=== PATIENT | male | born 1965 | race Caucasian/White ===

== ENCOUNTER 2016-12-30 23:33 | Inpatient (IN) ==
[2016-12-31] MEDS ORDERED: Vancomycin 1,000 MG in D5% in Water 250 ML IVPB ONE ×2 (00:08→03:00)
--- NOTE | 2016-12-31 00:11 | Emergency Department Note ---
Disposition Clinical Impression: Bilateral cellulitis of lower leg Anemia Qualifiers: Anemia type: unspecified type Qualified Code(s): D64.9 - Anemia, unspecified Disposition: Admitted As Inpatient Condition: Good Time of Disposition: 01:43 Skin/Abscess/FB HPI Chief complaint: ED Skin/Abscess/Foreign Body Stated complaint: cellulitus both lower legs Time Seen by Provider: 12/31/16 00:05 Source: patient Mode of arrival: ambulatory Limitations: no limitations Nursing Notes Reviewed: Yes Vital Signs Reviewed: Yes HPI Narrative: 51-year-old white male who has had redness in his legs for about 2-1/2-3 weeks. He has had weeping/drainage from his legs. He was seen here on 12/20/16. They recommended admission for cellulitis. He declined admission at that time, and returns tonight stating his legs are no better on oral antibiotics. No reported fever. He is a diabetic. He has not been monitoring his blood sugars. Pt Subjective Complaint: discoloration (Redness both legs) Onset (ago): week(s) (2-10/08) Tetanus Up to Date: unsure Location: LLE, RLE Severity: moderate Quality: burning Consistency: constant Improves with: none Worsens with: none Context: recent antibiotic Associated symptoms: Reports: denies other symptoms Treatments prior to arrival: antibiotic Home Medications Medication Instructions Recorded Confirmed Buprenorphine HCl/Naloxone HCl 1 each SL QID 10/27/15 12/30/16 [Suboxone 8 mg-2 mg Sl Film] Metformin [Glucophage] 1,000 mg PO BIDWM 10/27/15 12/30/16 Insulin Glargine,Hum.rec.anlog 50 unit SQ DAILY 12/20/16 12/30/16 [Lantus Solostar] Bumetanide 1 mg PO DAILY 12/30/16 12/30/16 Gabapentin [Neurontin] 300 mg PO BID 12/30/16 12/30/16 Potassium Chloride [Klor-Con 10 meq PO DAILY 12/30/16 12/30/16 Sprinkle] Previous Rx's Medication Instructions Recorded Omeprazole [PriLOSEC] 40 mg PO BID #40 cap 10/30/15 Clindamycin [Cleocin] 450 mg PO TID 10 Days 12/21/16 Allergies Allergy/AdvReac Type Severity Reaction Status Date / Time hydrocodone Allergy Hives Verified 10/18/16 03:26 All systems ED: reviewed and negative except as stated. Constitutional: Denies: fever, chills Cardiovascular: Denies: chest pain Respiratory: Denies: cough, dyspnea Gastrointestinal: Denies: abdominal pain, nausea, vomiting Musculoskeletal: Reports: as per HPI Integumentary: Reports: as per HPI Past Medical History - Past Medical History Medical history: Reports: cancer, diabetes, hypertension, TIA, other Surgical history: Reports: bariatric surgery, cholecystectomy, other Psychiatric history: Reports: no psych history - Social History Smoking Status: Never smoker Smokeless Tobacco Status: No Alcohol use: Reports: none Drug use: Reports: none Physical Exam - General Limitations: no limitations General appearance: alert, in no apparent distress, obese (Morbid) - Eye Eye exam: Present: normal appearance, PERRL, EOMI. Absent: scleral icterus, conjunctival injection - ENT ENT exam: normal oropharynx, mucous membranes moist - Neck Neck exam: Present: normal inspection, full ROM, trachea midline. Absent: lymphadenopathy - Chest Chest inspection: Present: normal inspection, symmetric chest wall rise - Respiratory Respiratory exam: Present: normal lung sounds bilaterally. Absent: respiratory distress, wheezes - Cardiovascular Cardiovascular exam: Present: regular rate, normal rhythm, normal heart sounds - Abdominal Exam Abdominal exam: Present: soft, Non-Tender, normal bowel sounds. Absent: organomegaly, mass - Extremities Exam Extremities exam: Present: other (2-3+ edema both lower extremities below the knees including the ankle and feet. There is diffuse erythema of the entire tib -fib area on the left, primarily anterior medial and laterally. There is some weeping ulcerations of clear fluid. The ankle and foot shows minimal erythema. The right lower extremity shows some moderate erythema over the mid and lateral tib-fib. There are some serous draining areas as well. There is one small pustule over the anterior tibia.) - Neurological Exam Neurological exam: Present: alert, oriented X3, normal gait - Psychiatric Psychiatric exam: Present: normal affect, normal mood - Skin Skin exam: Present: erythema (Erythema to both lower legs as noted above. Open superficial wounds draining clear fluid along with the one pustule is noted above.) Course - Reevaluation(s) Reevaluation #1: Discussed with Dr. Reyes. He accepts the patient for admission. The patient is agreeable with the treatment plan. Time: :43 Vital Signs Temperature 99.0 F 12/30/16 23:39 Pulse Rate 109 12/30/16 23:39 Respiratory Rate 19 12/30/16 23:39 Blood Pressure 152/79 12/30/16 23:39 O2 Sat by Pulse Oximetry 97 12/30/16 23:39 Temperature 99.0 F 12/30/16 23:41 Pulse Rate 93 12/31/16 00:57 Respiratory Rate 16 12/31/16 00:57 Blood Pressure 145/83 12/31/16 00:57 O2 Sat by Pulse Oximetry 94 L 12/31/16 00:57 Oxygen Delivery Oxygen Delivery Room Air Skin/Abscess/Foreign Body - MDM Narrative Medical decision making narrative: Differential includes but is not limited to DVT, cellulitis, dermatitis, dependent edema. His physical exam is most consistent with a cellulitis. Wound culture was obtained. Blood cultures were obtained. IV vancomycin was initiated. He is anemic with a hemoglobin of 6.8. On review of his old records his most recent hemoglobins in the last several months up in between 7.[address] Reyes is aware of the anemia. He will evaluate the anemia and initiate the workup in the morning. We are not going to transfuse him at this time. - Lab Data Result diagrams: 12/31/16 00:27 12/31/16 00:27 Lab Results 12/31/16 12/31/16 Range/Units 00:27 00:27 WBC 8.3 (4.3-11.1) K/mcL RBC 4.15 L (4.19-5.50) M/mcL Hgb 6.8 L (12.9-16.9) g/dL Hct 25.6 L (37.5-50.1) % MCV 61.7 L (83.0-100.0) fL MCH 16.4 L (28.0-33.3) pg MCHC 26.6 L (31.6-35.5) g/dL RDW 19.3 H (11.5-14.5) % Plt Count 347 (140-400) K/mcL MPV 9.7 (9.4-12.4) fL Sodium 139 (136-145) mEq/L Potassium 3.8 (3.5-4.5) mEq/L Chloride 103 (98-109) mEq/L Carbon Dioxide 26 (19-29) mEq/L BUN 21 (8-26) mg/dL Creatinine 0.90 (0.72-1.25) mg/dL Est GFR ( Amer) > 60 (> 60) Est GFR (Non-Af Amer) > 60 (> 60) BUN/Creatinine Ratio 23 (6-26) Glucose 269 H (70-99) mg/dL Calculated Osmolality 300 (280-300) Calcium 8.2 L (8.6-10.8) mg/dL Total Bilirubin 0.3 (0.2-1.2) mg/dL AST 12 (5-34) Units/L ALT 16 (0-55) Units/L Alkaline Phosphatase 73 (38-126) Units/L Serum Total Protein 6.7 (6.0-8.3) g/dL Albumin 2.8 L (3.5-5.0) g/dL Globulin 3.9 H (2.4-3.5) g/dL Albumin/Globulin Ratio 0.7 L (1.1-2.2)
[2016-12-31 00:46] LABS: Eosinophils # 0.2 K/mcL (0.0-0.6); Hematocrit 25.6 % (37.5-50.1); Hemoglobin 6.8 g/dL (12.9-16.9); Mean Corpuscular HGB Conc 26.6 g/dL (31.6-35.5); Mean Corpuscular Hemoglobin 16.4 pg (28.0-33.3); Mean Corpuscular Volume 61.7 fL (83.0-100.0); Mean Platelet Volume 9.7 fL (9.4-12.4); Platelet Count 347 K/mcL (140-400); Red Blood Count 4.15 M/mcL (4.19-5.50); Red Cell Distribution Width 19.3 % (11.5-14.5)
[2016-12-31 01:06] LABS: Alanine Aminotransferase 16 Units/L (0-55); Albumin 2.8 g/dL (3.5-5.0); Albumin/Globulin Ratio 0.7 (1.1-2.2); Alkaline Phosphatase 73 Units/L (38-126); Aspartate Amino Transferase 12 Units/L (5-34); BUN/Creatinine Ratio 23 (6-26); Bilirubin,Total 0.3 mg/dL (0.2-1.2); Blood Urea Nitrogen 21 mg/dL (8-26); Calcium 8.2 mg/dL (8.6-10.8); Carbon Dioxide 26 mEq/L (19-29); Chloride 103 mEq/L (98-109); Globulin 3.9 g/dL (2.4-3.5); Glucose 269 mg/dL (70-99); Osmolality,Calculated 300 (280-300); Potassium 3.8 mEq/L (3.5-4.5); Sodium 139 mEq/L (136-145); Total Protein 6.7 g/dL (6.0-8.3); eGFR For African Americans > 60 (> 60); eGFR For Non-African Americans > 60 (> 60)
[2016-12-31 01:54] LABS: Anisocytosis 2+ (Not Present); Hypochromasia Present (Not Present); Large Platelets Present (Not Present); Lymphocytes # 2.2 K/mcL (0.6-4.6); Monocytes # 0.2 K/mcL (0.0-1.3); Neutrophils # 5.6 K/mcL (1.6-8.9); Platelet Estimate Normal (Normal); Poikilocytosis 1+ (Not Present)
[2016-12-31 01:55] LABS: Microcytosis Present (Not Present); Toxic Granulation Present (Not Present)
[2016-12-31 01:56] LABS: Polychromasia 1+ (Not Present)
[2016-12-31] MEDS ORDERED: Naloxone 0.4 MG/ML INJ IVP PRN (02:32)
[2016-12-31] MEDS ORDERED: Vancomycin 2,000 MG in D5% in Water 250 ML IVPB SCH (02:32)
[2016-12-31] MEDS: *HR* Enoxaparin 40 MG/0.4 ML SYRINGE SQ SCH (05:45)
[2016-12-31] MEDS: *HR* Metformin 500 MG TABLET PO SCH ×2 (08:13→16:44)
[2016-12-31] MEDS ORDERED: Gabapentin 300 MG CAPSULE PO SCH (09:00)
[2016-12-31] MEDS ORDERED: Bumetanide 1 MG TABLET PO SCH (09:00)
[2016-12-31] MEDS: Insulin DETEMIR 100 UNIT/ML X5UNITS SQ SCH (09:47)
--- NOTE | 2016-12-31 14:20 | Internal Med History&Physical ---
Date of Encounter: 12/31/16 Time of Encounter: 13:50 Assessment and Plan (1) Bilateral cellulitis of lower leg Current visit: Yes Status: Acute He has been started on IV vancomycin. Lactobacillus will be added. Further workup will be done as needed. (2) DM type 2 (diabetes mellitus, type 2) Current visit: Yes Status: Chronic We will check hemoglobin A1c and continue Levemir and metformin. We will do Accu-Cheks with SSI. Qualifiers: Diabetes mellitus complication status: with unspecified complications Diabetes mellitus half-way insulin use: with terminologist use Qualified Code(s) : E11.8 - Type 2 diabetes mellitus with unspecified complications; Z79.4 - senior living (current) use of insulin (3) Anemia Current visit: Yes Status: Acute Suspect iron deficiency. He denies melena or hematochezia and uses a rare to occasional OTC aspirin and ibuprofen. He denies alcohol use. Will order anemia testing in a.m. With history of renal cell cancer will order CT of/ pelvis and do UA and guaiac stool. Qualifiers: Anemia type: unspecified type Qualified Code(s): D64.9 - Anemia, unspecified (4) Edema Current visit: Yes Status: Acute Will give IV Bumex and check BN peptide. Qualifiers: Edema type: unspecified Qualified Code(s): R60.9 - Edema, unspecified Internal Medicine - H&P: HPI Chief complaint: Leg redness Admitted From: Home Plans for Post Hospital Care: Home History of present illness: Mr. Swanson is a 51 year old male who came to the emergency room for evaluation after there had been minimal improvement following a 10 day course of treatment with clindamycin for diagnosis of leg cellulitis. He was evaluated in emergency room and felt to have bilateral lower leg cellulitis. He also had severe microcytic anemia. He was [facility] floor for ongoing care needs. Past Med Surg Social Fam HX - Past Medical History Medical history: cancer, diabetes, hypertension, TIA, other Psychiatric history: no psych history - Past Surgical History Surgical History: bariatric surgery, cholecystectomy, other - Social History Smoking Status: Never smoker Smokeless Tobacco Status: No Alcohol use: none Drug use: none Internal Medicine - H&P: Meds Buprenorphine HCl/Naloxone HCl [Suboxone 8 mg-2 mg Sl Film] 1 each SL QID [History] Metformin [Glucophage] 1,000 mg PO BIDWM 10/27/15 [History] Omeprazole [PriLOSEC] 40 mg PO BID #40 cap 10/30/15 [Rx] Insulin Glargine,Hum.rec.anlog [Lantus Solostar] 50 unit SQ DAILY 12/20/16 [ History] Clindamycin [Cleocin] 450 mg PO TID 10 Days 12/21/16 [Rx] Bumetanide 1 mg PO DAILY 12/30/16 [History] Gabapentin [Neurontin] 300 mg PO BID 12/30/16 [History] Potassium Chloride [Klor-Con Sprinkle] 10 meq PO DAILY 12/30/16 [History] Allergies hydrocodone Allergy (Verified 10/18/16 03:26) Hives All Systems PM: A 10-system review of systems was performed and is negative for pertinent findings except as documented above in the HPI. Review of systems: Gen.: He had gastric bypass surgery 2007 with weight decreasing from over 600 pounds to 315 pounds at the October 2013 [facility] hospitalization. He now reports weighing approximately 345 pounds. Cardiovascular: He denies hypertension PA heart failure angina DVT or pulmonary embolus. He had a heart catheter 2007 prior to GBS Respiratory: He is a lifelong nonsmoker and does not have documented chronic lung disease. He has been diagnosed with OMAR prior to GBS but with weight loss he was told he did not need to continue CPAP GI: He had GBS 2007. He has GERD and has had cholecystectomy. He denies disorders with his liver or exocrine pancreas : No history of hematuria dysuria or kidney stones Neurologic: No history of large distribution strokes or seizures. Endocrine: He was diagnosed with DM 2 prior to GBS. He denies hyperlipidemia or thyroid disease Hematology/oncology: Denies blood disorders other than being diagnosed with anemia recently. He was diagnosed with right renal cell cancer 2014 and underwent partial right nephrectomy. 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 He denies gout - Constitutional Vitals: Temp Pulse Resp BP Pulse Ox 98.0 F 76 18 122/76 98 12/31/16 10:10 12/31/16 10:10 12/31/16 10:10 12/31/16 10:10 12/31/16 10:10 Exam: Gen.: He is a well-developed obese male lying in bed who appears in no acute distress HEENT: Head is atraumatic and normocephalic. Eyes: EOMI. There is no scleral icterus. Mouth: Mucosa is moist. Neck: Supple and nontender. There is no thyromegaly or adenopathy noted. Heart: Regular without murmurs gallops or ectopics Lungs: No wheezes or crackles are heard. Abdomen: He has a large abdomen. It is nontender to palpation. Extremities: He has bilateral lower leg cellulitis more on the left than the right. He has multiple healing shallow ulcerative areas on his legs. He has 1- 2+ edema of the dorsum of the feet and lower legs bilaterally. Dorsalis pedis and posterior tibial pulses are nonpalpable because the edema. Neurologic: Mental status: He is talkative and a good historian. Cranial nerves : Smile is symmetric. Forehead wrinkles bilaterally. Tongue protrudes midline. EOMI. Motor: There is no pronator drift. Cerebellar: Finger to nose is intact bilaterally. Skin: Warm and dry Internal Med - H&P Results - Labs CBC & Chem 7: 12/31/16 00:27 12/31/16 00:27
[2016-12-31] MEDS ORDERED: Bumetanide 1 MG/4 ML VIAL IVP SCH (14:45)
[2016-12-31] MEDS ORDERED: Aminoglycoside Consult 1 EACH MC ONE (15:00)
[2016-12-31] MEDS ORDERED: Vancomycin 2,000 MG in D5% in Water 500 ML IVPB ONE (15:00)
[2016-12-31] MEDS: Bumetanide 1 MG/4 ML VIAL IVP SCH (16:46)
[2016-12-31] MEDS: Lactobacillus 1 EACH CAP.SPRINK PO SCH ×2 (16:54→20:53)
[2016-12-31 18:27] LABS: Bilirubin,Urine Negative (Negative); Blood,Urine Negative (Negative); Clarity,Urine Clear (Clear); Color,Urine Yellow (Yellow); Glucose,Urine (UA) Normal (Normal); Ketones,Urine Negative (Negative); Leukocyte Esterase,Urine Negative (Negative); Nitrite,Urine Negative (Negative); Protein,Urine Negative (Neg-Trace); Urobilinogen,Urine Normal (Normal)
[2016-12-31] MEDS: Gabapentin 100 MG CAPSULE PO SCH (20:53)
[2016-12-31] MEDS: Acetaminophen 325 MG TABLET PO PRN (23:59)
[2017-01-01] MEDS: Vancomycin 1,750 MG in D5% in Water 500 ML IVPB SCH ×2 (03:28→15:41)
[2017-01-01] MEDS: *HR* Enoxaparin 40 MG/0.4 ML SYRINGE SQ SCH (06:12)
[2017-01-01 06:29] LABS: Magnesium 1.9 mg/dL (1.6-2.6); Uric Acid 5.7 mg/dL (3.5-7.2)
[2017-01-01 06:36] LABS: Basophils % 0.2 %; Eosinophils # 0.3 K/mcL (0.0-0.6); Eosinophils % 3.3 %; Hematocrit 26.1 % (37.5-50.1); Immature Granulocytes % 0.4 % (0-4); Lymphocytes # 2.2 K/mcL (0.6-4.6); Lymphocytes % 26.7 %; Mean Corpuscular HGB Conc 26.8 g/dL (31.6-35.5); Mean Corpuscular Hemoglobin 16.5 pg (28.0-33.3); Mean Corpuscular Volume 61.4 fL (83.0-100.0); Mean Platelet Volume 9.8 fL (9.4-12.4); Monocytes # 0.5 K/mcL (0.0-1.3); Monocytes % 6.1 %; Neutrophils # 5.2 K/mcL (1.6-8.9); Platelet Count 354 K/mcL (140-400); Red Blood Count 4.25 M/mcL (4.19-5.50); Red Cell Distribution Width 19.5 % (11.5-14.5); Segmented Neutrophils % 63.3 %
[2017-01-01 06:52] LABS: Microcytosis Present (Not Present); Platelet Estimate Normal (Normal); Polychromasia 1+ (Not Present)
[2017-01-01 06:53] LABS: Hypochromasia Present (Not Present)
[2017-01-01 06:55] LABS: Poikilocytosis 1+ (Not Present)
[2017-01-01 06:56] LABS: Anisocytosis 1+ (Not Present)
[2017-01-01] MEDS: Bumetanide 1 MG/4 ML VIAL IVP SCH ×2 (08:33→17:53)
[2017-01-01] MEDS: *HR* Metformin 500 MG TABLET PO SCH ×2 (08:33→17:55)
[2017-01-01] MEDS: Lactobacillus 1 EACH CAP.SPRINK PO SCH ×2 (08:34→20:55)
[2017-01-01] MEDS: Gabapentin 100 MG CAPSULE PO SCH ×2 (08:34→20:56)
[2017-01-01] MEDS: Insulin DETEMIR 100 UNIT/ML X5UNITS SQ SCH (09:41)
[2017-01-01] MEDS: Acetaminophen 325 MG TABLET PO PRN ×2 (12:02→23:17)
--- NOTE | 2017-01-01 12:27 | Internal Med Progress Note ---
Date of Encounter: 01/01/17 Time of Encounter: 12:15 - Assessment and plan (1) Bilateral cellulitis of lower leg Current Visit: Yes Status: Acute Assessment and plan: January 01. Continue IV vancomycin and lactobacillus. (2) DM type 2 (diabetes mellitus, type 2) Current Visit: Yes Status: Chronic Assessment and plan: January 01. Continue Levemir and metformin with Accu-Cheks and SSI. Qualifiers: Diabetes mellitus complication status: with unspecified complications Diabetes mellitus moth exterminator insulin use: with custodial use Qualified Code(s) : E11.8 - Type 2 diabetes mellitus with unspecified complications; Z79.4 - correction (current) use of insulin (3) Anemia Current Visit: Yes Status: Acute Assessment and plan: January 01. Anemia testing is pending. Hemoglobin is still low at 7.0. We will transfuse 1 unit packed red blood cells. He will likely need iron infusion. Stool returned guaiac positive Qualifiers: Anemia type: unspecified type Qualified Code(s): D64.9 - Anemia, unspecified (4) Edema Current Visit: Yes Status: Acute Assessment and plan: January 01. BN peptide was normal at 15. Continue with IV Bumex Qualifiers: Edema type: unspecified Qualified Code(s): R60.9 - Edema, unspecified - Subjective Interval history: January 01. He has no new complaints and feels he is improved - Constitutional Vitals: Temp Pulse Resp BP Pulse Ox 98.2 F 79 18 115/69 96 01/01/17 12:03 01/01/17 12:03 01/01/17 12:03 01/01/17 12:03 01/01/17 12:03 Exam: He is resting comfortably in bed. There is slight improvement in his lower legs edema and erythema. I reviewed his medications, lab results, and abdominal CT report. Anemia testing is pending Internal Medicine: Result - Labs CBC & Chem 7: 01/01/17 05:00 12/31/16 00:27 Labs: Short CBC 01/01/17 Range/Units 05:00 WBC 8.3 (4.3-11.1) K/mcL Hgb 7.0 L (12.9-16.9) g/dL Hct 26.1 L (37.5-50.1) % Plt Count 354 (140-400) K/mcL Neutrophils # 5.2 (1.6-8.9) K/mcL Urine 12/31/16 Range/Units 17:30 Urine Color Yellow (Yellow) Urine Clarity Clear (Clear) Urine pH 7.0 (5.0-8.0) pH Units Ur Specific [place] 1.020 (1.010-1.025) Urine Protein Negative (Neg-Trace) mg/dL Urine Glucose (UA) Normal (Normal) mg/dL - Impressions Impressions Abdomen/Pelvis CT 12/31/16 14:45 IMPRESSION: Stable CT examination of the abdomen/pelvis. Stable postsurgical changes in the upper pole of the right kidney consistent with partial nephrectomy. No definite local recurrence of tumor or metastatic disease in the abdomen/ pelvis with the limitations of a noncontrast study. 2 unchanged midline ventral hernias containing bowel. No evidence of incarceration. Remote gastric bypass surgery. D/ / Leo Hager MD / Leo Hager MD Interpreting Provider: Leo Hager MD Consult Discharge Plan - Plan Referrals: Bere Noriega, [employer]ACHINE TENDER [Primary Care Provider] - 1 week
[2017-01-01 12:42] LABS: Folate 11.1 ng/mL (7.0-31.4)
[2017-01-01] MEDS ORDERED: 0.9 % Sodium Chloride 250 ML ONE (13:35)
[2017-01-02] MEDS: Vancomycin 1,750 MG in D5% in Water 500 ML IVPB SCH (02:52)
[2017-01-02 05:34] LABS: Basophils % 0.4 %; Eosinophils # 0.3 K/mcL (0.0-0.6); Eosinophils % 3.6 %; Hematocrit 28.9 % (37.5-50.1); Hemoglobin 7.7 g/dL (12.9-16.9); Immature Granulocytes % 0.3 % (0-4); Lymphocytes # 2.2 K/mcL (0.6-4.6); Lymphocytes % 29.4 %; Mean Corpuscular HGB Conc 26.6 g/dL (31.6-35.5); Mean Corpuscular Hemoglobin 16.5 pg (28.0-33.3); Mean Platelet Volume 9.2 fL (9.4-12.4); Monocytes # 0.5 K/mcL (0.0-1.3); Monocytes % 6.8 %; Neutrophils # 4.5 K/mcL (1.6-8.9); Platelet Count 360 K/mcL (140-400); Red Blood Count 4.66 M/mcL (4.19-5.50); Red Cell Distribution Width 20.6 % (11.5-14.5); Segmented Neutrophils % 59.5 %
[2017-01-02 05:49] LABS: BUN/Creatinine Ratio 18 (6-26); Blood Urea Nitrogen 16 mg/dL (8-26); Calcium 8.4 mg/dL (8.6-10.8); Carbon Dioxide 28 mEq/L (19-29); Chloride 102 mEq/L (98-109); Glucose 172 mg/dL (70-99); Osmolality,Calculated 289 (280-300); Potassium 4.4 mEq/L (3.5-4.5); Sodium 137 mEq/L (136-145); eGFR For African Americans > 60 (> 60); eGFR For Non-African Americans > 60 (> 60)
[2017-01-02] MEDS: *HR* Enoxaparin 40 MG/0.4 ML SYRINGE SQ SCH (06:02)
[2017-01-02 07:19] LABS: Anisocytosis 3+ (Not Present); Hypochromasia Present (Not Present); Microcytosis Present (Not Present); Ovalocytes 1+ (Not Present)
[2017-01-02 07:20] LABS: Platelet Estimate Normal (Normal); Polychromasia 1+ (Not Present)
[2017-01-02] MEDS: Gabapentin 100 MG CAPSULE PO SCH (07:55)
[2017-01-02] MEDS: Lactobacillus 1 EACH CAP.SPRINK PO SCH (07:55)
[2017-01-02] MEDS: *HR* Metformin 500 MG TABLET PO SCH (07:56)
[2017-01-02] MEDS: Bumetanide 1 MG/4 ML VIAL IVP SCH (07:56)
[2017-01-02] MEDS: Insulin DETEMIR 100 UNIT/ML X5UNITS SQ SCH (09:08)
[2017-01-02] MEDS ORDERED: IRON DEXTRAN COMPLEX IVPB ONE (10:00)
[2017-01-02] MEDS ORDERED: SODIUM CHLORIDE 0.9% IVPB ONE (10:00)
[2017-01-02 12:22] VITALS: BP 121/76
--- NOTE | 2017-01-02 14:04 | Discharge Summary ---
Date of Encounter: 01/02/17 Time of Encounter: 13:50 - Discharge Diagnosis (1) Bilateral cellulitis of lower leg Priority: Primary Status: Acute (2) DM type 2 (diabetes mellitus, type 2) Priority: Secondary Status: Chronic Qualifiers: Diabetes mellitus complication status: with unspecified complications Diabetes mellitus detention insulin use: with parts counterman use Qualified Code(s) : E11.8 - Type 2 diabetes mellitus with unspecified complications; Z79.4 - roasterman (current) use of insulin (3) Anemia Priority: Secondary Status: Acute Qualifiers: Anemia type: iron deficiency Iron deficiency anemia type: unspecified iron deficiency Qualified Code(s): D50.9 - Iron deficiency anemia, unspecified (4) Edema Priority: Secondary Status: Acute Qualifiers: Edema type: unspecified Qualified Code(s): R60.9 - Edema, unspecified - Discharge Medications Prescriptions: Bumetanide 2 mg PO DAILY #30 tablet Doxycycline 100 mg PO BID #10 capsule Lactobacillus [Culturelle] 1 each PO BID #10 cap.sprink Sulfamethoxazole/Trimeth DS [Bactrim DS] 1 each PO BID #10 tablet Home Medications: Buprenorphine HCl/Naloxone HCl [Suboxone 8 mg-2 mg Sl Film] 1 each SL QID [History] Metformin [Glucophage] 1,000 mg PO BIDWM 10/27/15 [History] Omeprazole [PriLOSEC] 40 mg PO BID #40 cap 10/30/15 [Rx] Insulin Glargine,Hum.rec.anlog [Lantus Solostar] 50 unit SQ DAILY 12/20/16 [ History] Potassium Chloride [Klor-Con Sprinkle] 10 meq PO DAILY 12/30/16 [History] Bumetanide 2 mg PO DAILY #30 tablet 01/02/17 [Rx] Doxycycline 100 mg PO BID #10 capsule 01/02/17 [Rx] Lactobacillus [Culturelle] 1 each PO BID #10 cap.sprink 01/02/17 [Rx] Sulfamethoxazole/Trimeth DS [Bactrim DS] 1 each PO BID #10 tablet 01/02/17 [Rx] Allergies/Adverse Reactions: Allergies hydrocodone Allergy (Verified 10/18/16 03:26) Hives Date of admission: 01/01/17 14:18 Primary care physician: Bere Noriega CNP - Patient Status Disposition: Home, Self-Care Condition: Good Overall status at discharge: patient is progressing back to baseline - Discharge Instructions Follow Up With: Bere Noriega CNP [Primary Care Provider] - 1 week - Diet and Activity Activity: resume usual activities as tolerated Diet: diabetic diet Hospital course: Mr. Swanson is a 51 year old male who came to the emergency room for evaluation after there had been minimal improvement following a 10 day course of treatment with clindamycin for diagnosis of leg cellulitis. He was evaluated in emergency room and felt to have bilateral lower leg cellulitis. He also had severe microcytic anemia. He was admitted to [facility] for ongoing care needs. Initial orders were written by the emergency room physician. I saw him on December 31 and performed the history and physical. He was started on IV vancomycin. Lactobacillus was also given. There was gradual improvement in his leg cellulitis during his hospital stay. He remained afebrile. He wished to be discharged home on January 02 and continue antibiotics as an outpatient which I felt was reasonable. He will continue with oral doxycycline and Septra DS with probiotic for 5 additional days. Anemia testing showed iron deficiency. He was given 1 unit packed red blood cells in transfusion and also given IV iron dextran. CT of abdomen/pelvis showed no acute pathology. Stool returned guaiac positive. I will with his PCP pursue further workup such as colonoscopy as needed. He was given IV Bumex and had good diuresis. He will continue on oral Bumex at a dose of 2 mg daily upon discharge. On January 02 he felt stable for discharge home. He will follow with his PCP Bere Noriega CNP within 1 week. - Time Spent with Patient Total time spent providing and/or coordinating discharge services: - Constitutional Vitals: Temp Pulse Resp BP Pulse Ox 98.0 F 95 16 121/76 97 01/02/17 12:22 01/02/17 12:22 01/02/17 12:22 01/02/17 12:22 01/02/17 12:22
== END 2017-01-02 14:40 | disposition home or self-care (01) | DRG 380 ==
LOC: EMEROOPIK 23:33 → INPPIK 23:33
PROVIDERS: ADMIT Internal Medicine; ATTEND Internal Medicine